=== PATIENT | female | born 1990 | race Caucasian/White ===

== ENCOUNTER 2025-10-10 03:45 | Emergency (ER) | payer OTHER, SELFPAY ==
[2025-10-10 03:49] VITALS: BP 141/81
--- NOTE | 2025-10-10 04:05 | ED.GENMED ---
History of Present Illness
General
Chief Complaint: Flank Pain
Time Seen by Provider: 10/10/25 04:02
History of Present Illness
History of Present Illness:
35-year-old female presents to the emergency department for evaluation of right posterior flank/thoracic back pain for the past 2 weeks. Worse with movement. Fever, chills, sweats, nausea, vomiting, or diarrhea. No lower urinary tract voiding
symptoms. Has not taken any medication for pain control. 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 She does not recall any specific injury however.
Review of Systems
Review of Systems
Allergies reviewed?: Yes
All Other Systems: ROS reviewed and negative except as documented in HPI and ROS
Phy Exam
Physical Exam
Physical Exam:
GEN: Well appearing, NAD, WDWN
HEENT: Oral mucosa moist, no scleral icterus
Cardiac: Regular rate and rhythm, no murmur
Lung: No respiratory distress, no tachypnea, lungs CTAB
Abdomen: No CVAT, abdomen grossly non tender
MSK: No gross deformity or injuries. Mild tenderness to R thoracic back laterally, no crepitus or ecchymosis
Skin: Good color, no pallor or jaundice, no rashes
Neuro: AO x3, moves all extremities freely
Psych: Calm, cooperative
Course
Orders/Labs/Results
Orders:
Orders
10/10/25 03:56
Test Result ONCE
10/10/25 04:05
Complete Blood Count/With Diff Urgent
Comprehensive Metabolic Panel Urgent
HCG, Serum Qualitative Screen Urgent
Urinalysis Urgent
Date Specimen was Collected: 10/10/25
Time Specimen was Collected: 03:56
Urine Microscopic Urgent
Date Specimen was Collected: 10/10/25
Time Specimen was Collected: 03:56
10/10/25 04:19
Ketorolac [Toradol] 15 mg IV NOW STA
Abnormal Lab Results
10/10/25
04:05
WBC 11.6 H 10^3/uL
(4.8-10.8)
MCH 26.8 L pg
(27.0-31.0)
MCHC 32.9 L g/dL
(33.0-37.0)
Abs Immat Gran (auto) 0.1 H 10^3/uL
(0-0.05)
Absolute Neuts (auto) 7.6 H 10^3/uL
(1.4-6.5)
Glucose 108 H mg/dl
(70-99)
ALT 38 H U/L
(0-35)
Ur Leukocyte Esterase 1+ A
(Negative)
Urine WBC 26-30 A /HPF
(0-5)
Urine Bacteria Many A
(Negative)
Urine Albumin 1+ A
(Neg - Trace)
10/10/25 04:05
10/10/25 04:05
Vital Signs
Initial and Last Documented VS:
Initial Vital Signs
Temp Pulse Resp BP Pulse Ox
98.5 F 99 16 141/81 98
10/10/25 03:49 10/10/25 03:49 10/10/25 03:49 10/10/25 03:49 10/10/25 03:49
Last Documented Vital Signs
Temp Pulse Resp BP Pulse Ox
98.5 F 99 16 141/81 98
10/10/25 03:49 10/10/25 03:49 10/10/25 03:49 10/10/25 03:49 10/10/25 04:07
MDM/Problems Addressed
MDM/Problems Addressed:
Pain is most likely musculoskeletal, urinalysis is contaminated but she has no lower urinary tract voiding symptoms that would suggest pyelonephritis. Pain is clearly reproducible on movement as well as palpation on exam, discussed use of NSAIDs
and other supportive care measures
*Pulse Oximetry
SaO2: 98
Oxygen Mode of Delivery: Room air
Patient hypoxic: no
*Critical Care Note
Total Time (30-74mins, 75-104mins- exclusive of procedures): Not Applicable
ED Attending Note
-
Portions of this chart may have been created with voice recognition software.� Occasional wrong word or��sound alike� substitutions may have occurred due to the inherent limitations of voice recognition software.
Discharge Plan
Departure
Patient Disposition: Home (Routine Discharge)
Date of Disposition: 10/10/25
Time of Disposition: 05:25
Patient with high blood pressure during this ER visit?: No
Discharge Problem:
Back pain, thoracic
Instructions: Upper Back Pain ED
Prescriptions:
New
celecoxib 200 mg capsule
200 mg PO BID Qty: 20 0RF
Interventions
Interventions:
*General Assessment Last Done: 10/10/25 04:06
*Neglect/Abuse Screening Last Done: 10/10/25 03:49
*ED COVID-19 Vaccine History Last Done: 10/10/25 03:49
*ED Influenza Vaccine History Last Done: 10/10/25 03:49
[facility] Fall Risk Assessment Tool Last Done: 10/10/25 04:07
DJ-Bfiopk-Tyavtziesh Assessment Last Done: 10/10/25 04:09
ED-Female Genitourinary Assessment Last Done: 10/10/25 04:09
Discharge Date and Time
Print Language: EMIRATI
[2025-10-10 04:06] VITALS: BMI 38.8
[2025-10-10 04:22] LABS: Hematocrit 37.7 % (37.0-47.0); Hemoglobin 12.4 g/dL (12.0-16.0); Mean Corp Hgb Conc. 32.9 g/dL (33.0-37.0); Mean Corpuscular Volume 81.4 fL (81.0-99.0); Nucleated Red Blood Cells % 0 %; Platelet Count 348 10^3/uL (130-400); Red Cell Dist. Width 13.2 % (11.5-14.5)
[2025-10-10] MEDS: TORADOL 15 MG IV (04:24)
[2025-10-10 04:26] LABS: HCG, Serum Qualitative Screen Negative
[2025-10-10 04:28] LABS: ALT (SGPT) 38 U/L (0-35); AST (SGOT) 24 U/L (14-36); Albumin 4.7 g/dl (3.5-5.0); Alkaline Phosphatase 97 U/L (38-126); Blood Urea Nitrogen 11 mg/dl (7-17); Calcium 9.2 mg/dl (8.4-10.2); Carbon Dioxide 27 mmol/L (22-30); Chloride 103 mmol/L (98-107); Estimated Creatinine Clearance 123 ml/min; Glucose 108 mg/dl (70-99); Potassium 4.1 mmol/L (3.5-5.1); Sodium 138 mmol/L (135-145); Total Protein 7.7 g/dl (6.3-8.2); eGFR > 60.00
[2025-10-10 04:48] LABS: Urine Character Clear (Clear)
[2025-10-10 05:33] LABS: Urine Squamous Cell >30 /LPF (Few)
[2025-10-10 05:34] LABS: Urine Red Blood Cell 0-2 /HPF (0-2); Urine White Cell 26-30 /HPF (0-5)
== END 2025-10-10 05:50 | disposition home or self-care (01) ==
LOC: EMR 03:45
PROVIDERS: EMERGENCY PHYSICIAN Student in an Organized Health Care Education/Training Program
DX: M54.6 Pain in thoracic spine (principal)
CPT/HCPCS: 99283; 80053; 81003; 81015; 84703; 85025